=== PATIENT | female | born 1950 | race Caucasian/White ===

== ENCOUNTER 2019-11-11 04:31 | Emergency (ER) | payer MEDICARE ==
[2019-11-11 04:44] VITALS: BP 135/77
[2019-11-11] MEDS ORDERED: OXYCODONE-ACETAMINOPHEN 5-325 MG TABLET PO ONE (04:54)
[2019-11-11] MEDS ORDERED: PREDNISONE 20 MG TABLET PO ONE (04:54)
[2019-11-11] MEDS ORDERED: HYDROCODONE/ACETAMINOPHEN 5-325 MG (6 TAB/ER DISP) PO PRN (04:54)
--- NOTE | 2019-11-11 05:00 | ER Document Report ---
ED General - General Chief Complaint: Leg Pain Stated Complaint: GOUT FLARE UP Time Seen by Provider: 11/11/19 04:38 Primary Care Provider: MELODIE ALEJO [Primary Care Provider] - Follow up as needed CASIMIRO BOB MD [HONORARY] - Follow up as needed Information source: Patient - HPI Onset: Other - 2 days ago Onset/Duration: Gradual Quality of pain: Sharp Severity: Severe Pain Level: 5 Context: 69-year-old female with a history of gout presents to the emergency department complaining of left ankle pain and swelling x2 days. Patient states that the pain, swelling and redness is similar to her prior gout attacks but these usually occur in the base of her left great toe. Patient describes the pain as sharp and constant. Patient states that anything coming into contact with the ankle exacerbates her pain. Patient states that trying to bear weight on her left leg is basically impossible secondary to pain. Patient states nothing is alleviating her symptoms. Patient denies recent trauma. Associated symptoms: None Exacerbated by: Other - Weightbearing, movement, touch Relieved by: Other - Nothing Similar symptoms previously: Yes - Related Data Allergies/Adverse Reactions: No Known Allergies Allergy (Verified 11/20/12 10:23) Home Medications: Lopressor 40mg. Lasix Past Medical History - General Information source: Patient - Social History Smoking Status: Never Smoker Chew tobacco use (# tins/day): No Frequency of alcohol use: None Drug Abuse: None Family History: Reviewed & Not Pertinent - Past Medical History Cardiac Medical History: Reports: Hx Hypercholesterolemia, Hx Hypertension Musculoskeletal Medical History: Reports Hx Fibromyalgia Psychiatric Medical History: Reports: Hx Anxiety Past Surgical History: Reports: Hx Coronary Artery Bypass Graft, Hx Hysterectomy - Immunizations Immunizations up to date: Yes Hx Diphtheria, Pertussis, Tetanus Vaccination: Yes Review of Systems - Review of Systems Constitutional: No symptoms reported EENT: No symptoms reported Cardiovascular: No symptoms reported Respiratory: No symptoms reported Gastrointestinal: No symptoms reported Genitourinary: No symptoms reported Female Genitourinary: No symptoms reported Musculoskeletal: Gout, Joint pain, Joint swelling Skin: No symptoms reported Hematologic/Lymphatic: No symptoms reported Neurological/Psychological: No symptoms reported -: Yes All other systems reviewed and negative Physical Exam - Vital signs Vitals: Temp Pulse Resp BP Pulse Ox 98.3 F 83 16 135/77 H 98 11/11/19 04:40 11/11/19 04:40 11/11/19 04:40 11/11/19 04:40 11/11/19 04:40 - Notes Notes: CONSTITUTIONAL [Vital signs reviewed, Patient appears uncomfortable, Alert and oriented X 3, Normal stature.] HEAD [Atraumatic, Normocephalic.] EYES [Eyes are normal to inspection, No discharge from eyes, Extraocular muscles intact, Sclera are normal, Conjunctiva are normal.] ] NECK [Normal ROM, No jugular venous distention, No meningeal signs, no carotid bruit.] RESPIRATORY CHEST [Chest is nontender, Breath sounds normal, No respiratory distress.] CARDIOVASCULAR [RRR, No murmurs, Normal S1 S2, No rub, No gallop.] ABDOMEN [Abdomen is nontender, No pulsatile masses, No other masses, Bowel sounds normal, No distension, No peritoneal signs, No hernias.] BACK [There is no CVA Tenderness, There is no tenderness to palpation, Normal inspection.] UPPER EXTREMITY [Inspection normal, No cyanosis, No clubbing, No edema, 2+ radial pulses.] LOWER EXTREMITY Lower extremity exam is significant for left ankle tenderness, erythema, and edema. Remainder of lower extremity exam is unremarkable] NEURO [No focal motor deficits, No focal sensory deficits, Speech normal.] SKIN [Skin is warm, Skin is dry, Skin is normal color.] LYMPHATIC [No adenopathy in neck.] PSYCHIATRIC [Normal affect. ] Course - Re-evaluation Re-evalutation: 11/11/19 05:07 Diagnosis and plan of care discussed with patient and patient's significant other. All questions were answered prior to discharge. Emergency signs and symptoms, reasons to return to the emergency department discussed with patient and patient's significant other. - Vital Signs Vital signs: Temp Pulse Resp BP Pulse Ox 98.3 F 83 16 135/77 H 98 11/11/19 04:40 11/11/19 04:40 11/11/19 04:40 11/11/19 04:40 11/11/19 04:40 Discharge - Discharge Clinical Impression: Gouty arthritis of left ankle Condition: Stable Disposition: HOME, SELF-CARE Additional Instructions: Return to the Emergency Department without delay if any worse. HOME CARE INSTRUCTIONS & INFORMATION: Thank you for choosing us for your medi ann needs. We hope you're satisfied with the care you received. After you leave, you must properly care for your problem and, at the same time, observe its progress. Any condition can change. Some illnesses can change rapidly over hours or days. If your condition worsens, return to the Emergency Department or see your physician promptly. ABOUT YOUR X-RAYS AND EKG'S: If you had an EKG or X-rays taken, they have been read by the Emergency Physician. The X-rays and EKG's will also be read by a Radiologist or Sales Closer within 24 hours. If discrepancies are noted, you will be notified by telephone. Please be certain the ED has a correct telephone number & address where you can be reached. Also, realize that some fractures or abnormalities do not show up on initial X-rays. If your symptoms continue, see your physician. ABOUT YOUR LABORATORY TEST: If you had laboratory tests, the results have been reviewed by the Emergency Physician. Some test results (for example cultures) may not be available for several days. You will be contacted if any test result shows you need additional treatment. Please be certain the ED has a correct telephone number and address where you can be reached. ABOUT YOUR MEDICATIONS: You will receive instructions on how to take your medicine on the prescription label you receive. Additional information may be provided by the Pharmacy. If you have questions afterwards, call the ED for clarification or further instructions. Some prescribed medications may cause drowsiness. Do not perform tasks such as driving a car or operating machinery without consulting your Pharmacist. If you feel you need a refill of pain medication, your condition will need re-evaluation. Please do not call for a refill of any medication. ABOUT YOUR SIGNATURE: Signature of this document acknowledges to followin. Understanding that you received emergency treatment and that you may be released before al medical problems are known or treated. Please be certain the ED has a correct phone number & address where you can be reached. 2. Acknowledgement that you will arrange for follow-up care as recommended. 3. Authorization for the Emergency Physician to provide information to your follow-up Physician in order to maximize your care. AT ANY TIME, IF YOUR SYMPTOMS CHANGE SIGNIFICANTLY OR WORSEN OR YOU DEVELOP NEW SYMPTOMS, RETURN TO THE EMERGENCY DEPARTMENT IMMEDIATELY FOR RE-EVALUATION. OUR GOAL IS TO PROVIDE EXCELLENT MEDICAL CARE! WE HOPE THAT WE HAVE MET YOUR EXPECTATIONS DURING YOUR EMERGENCY DEPARTMENT VISIT AND THAT YOU FEEL YOU HAVE RECEIVED EXCELLENT CARE! Gout You have been diagnosed as having gout. Gout is a problem caused by an excess of uric acid, a natural chemical found in the body. The cause of this disease is unknown. Gout arthritis occurs when crystals of uric acid form in the joints. The big toe is the most common joint involved, but any joint can become affected. Persons with gout may also form uric acid kidney stones, resulting in flank pain and blood in the urine. Nodules of uric acid may form under the skin. The first step of treatment is to decrease the inflammation in the joint with antiinflammatory medication. Medication to lower the uric acid level in the blood may then be prescribed. This medication should be taken regularly, as any sudden change in dosage may provoke an attack of gout. Some foods, such as red meat, can provoke an attack in some gout sufferers. Call the doctor if new symptoms arise, or if you do not improve. Prescriptions: Hydrocodone/Acetaminophen [[place] 5-325 mg Tablet] 1 tab PO Q6HP PRN #15 tablet PRN Reason: pain Prednisone [Deltasone 20 mg Tablet] 60 mg PO DAILY 4 Days #12 tablet Referrals: MELODIE ALEJO [Primary Care Provider] - Follow up as needed CASIMIRO BOB MD [HONORARY] - Follow up as needed
== END 2019-11-11 04:58 | disposition home or self-care (01) ==
LOC: ER 04:31
DX: M10.9 Gout, unspecified (principal); M79.605 Pain in left leg; E78.00 Pure hypercholesterolemia, unspecified; I10 Essential (primary) hypertension; Z95.1 Presence of aortocoronary bypass graft; Z90.710 Acquired absence of both cervix and uterus
CPT/HCPCS: 99284; A9270 ×3; J7512